=== PATIENT | female | born 1990 | race Two or more races ===

== ENCOUNTER 2024-04-04 20:25 | Inpatient (IN) | payer OTHER ==
[2024-04-04 21:21] LABS: BASO % 0.3 % (0-2.0); EOS % 1.4 % (0-4.5); HEMATOCRIT 33.6 % (32.4-45.2); HEMOGLOBIN 11.4 GM/dL (10.7-15.3); LYMPH % 28.7 % (8-40); MCH 28.1 pg (25.7-33.7); MEAN CELL VOLUME 82.5 fl (80-96); MEAN PLT VOLUME 9.2 fl (7.5-11.1); MONO % 6.3 % (3.8-10.2); NEUT % 63.3 % (42.8-82.8); PLATELET COUNT 162 10^3/uL (134-434); RBC 4.07 M/mm3 (3.60-5.2); RDW 15.2 % (11.6-15.6); WHITE BLOOD COUNT 10.7 K/mm3 (4.0-10.0)
[2024-04-04] MEDS: ELECTROLYTE-148 SOLN 1,000 ML IV SCH (21:25)
[2024-04-04 21:26] LABS: INR 0.87 (0.83-1.09)
[2024-04-04 21:28] LABS: ACTIVATED PTT 25.2 SECONDS (25.2-36.5)
[2024-04-04] MEDS ORDERED: OXYTOCIN 30 UNITS in 0.9% NS 30 UNIT/500 ML INFUS.BAG IVPB ONE (21:31)
[2024-04-04] MEDS: OXYTOCIN 30 UNITS in 0.9% NS 30 UNIT/500 ML INFUS.BAG IVPB SCH (21:35)
[2024-04-04 21:40] LABS: POTASSIUM 3.5 mmol/L (3.5-5.1)
[2024-04-04 21:41] LABS: CALCIUM 8.6 mg/dL (8.5-10.1)
[2024-04-04 21:42] LABS: BLOOD UREA NITROGEN 11.2 mg/dL (7-18)
[2024-04-04 21:45] LABS: CREATININE 0.6 mg/dL (0.55-1.3)
[2024-04-04 21:54] VITALS: BMI 27.6
[2024-04-04] MEDS: OXYTOCIN 20 UNITS in 0.9% NS 20 UNIT/1,000 ML INFUS.BAG IV SCH (22:38)
[2024-04-04] MEDS ORDERED: LIDOCAINE HCL 1% PRESERVATIVE FREE - 30ML VIAL ONE (22:39)
[2024-04-04] MEDS ORDERED: OXYTOCIN 20 UNITS in 0.9% NS 20 UNIT/1,000 ML INFUS.BAG IV ONE (22:39)
[2024-04-04] MEDS ORDERED: ACETAMINOPHEN 325 MG TABLET (FP) PO PRN (23:03)
[2024-04-04] MEDS ORDERED: METHYLERGONOVINE MALEATE 0.2 MG/1 ML AMP IM PRN (23:03)
[2024-04-04] MEDS ORDERED: BISACODYL 10 MG SUPP.RECT RC PRN (23:03)
[2024-04-04] MEDS ORDERED: BENZOCAINE 20% 57 GM BOTTLE TP PRN (23:03)
[2024-04-04] MEDS ORDERED: WITCH HAZEL 50% (TUCKS) 40 PAD/JAR PAD TP PRN (23:03)
[2024-04-04] MEDS ORDERED: BENZOCAINE 28 GM HEMORRHOIDAL OINTMENT TP PRN (23:03)
[2024-04-04] MEDS ORDERED: IBUPROFEN 600 MG TABLET (FP) PO ONE (23:44)
[2024-04-04] MEDS: IBUPROFEN 600 MG TABLET (FP) PO PRN (23:45)
[2024-04-05 07:50] LABS: BASO % 0.5 % (0-2.0); EOS % 0.9 % (0-4.5); HEMATOCRIT 33.3 % (32.4-45.2); HEMOGLOBIN 10.8 GM/dL (10.7-15.3); MCH 27.3 pg (25.7-33.7); MCHC 32.4 g/dl (32.0-36.0); MEAN CELL VOLUME 84.1 fl (80-96); MEAN PLT VOLUME 9.4 fl (7.5-11.1); MONO % 6.5 % (3.8-10.2); NEUT % 71.1 % (42.8-82.8); PLATELET COUNT 148 10^3/uL (134-434); RBC 3.96 M/mm3 (3.60-5.2); RDW 14.9 % (11.6-15.6); WHITE BLOOD COUNT 13.1 K/mm3 (4.0-10.0)
[2024-04-05] MEDS: PRENATAL VITAMINS W/ FOLIC ACID TABLET (FP) PO SCH (09:17)
[2024-04-05] MEDS: FERROUS SO4 325 MG TABLET (FP) PO SCH (09:17)
[2024-04-05 20:43] VITALS: RESP 17
[2024-04-05] MEDS: SENNOSIDES/DOCUSATE COMBO (SENNA PLUS) TABLET (UD) PO PRN (21:04)
[2024-04-06 09:04] VITALS: BP 105/71; PULSE 84; TEMP 98.8
== END 2024-04-06 16:30 | disposition home or self-care (01) | DRG 560 ==
LOC: JDEL 20:25 → JLDR 20:45 → J3W 04-05 01:29
PROVIDERS: ADMIT Obstetrics & Gynecology; ATTEND Obstetrics & Gynecology
PROC: 10E0XZZ Delivery of Products of Conception, External Approach (ICD-10-PCS; principal; 2024-04-04)
PROC: 0HQ9XZZ Repair Perineum Skin, External Approach (ICD-10-PCS; 2024-04-04)
DX: O70.0 First degree perineal laceration during delivery (principal); O32.6XX0 Maternal care for compound presentation, not applicable or unspecified; Z3A.37 37 weeks gestation of pregnancy; Z37.0 Single live birth
CPT/HCPCS: 36415; 59409; 80048; 85025; 85610; 85730; 86780; 86850; 86900; 86901